=== PATIENT | female | born 1995 | race American Indian/Alaskan Native ===

== ENCOUNTER 2022-02-05 11:55 | Emergency (ER) | payer MEDICAID ==
--- NOTE | 2022-02-05 15:05 | Emergency Department Report ---
ED ENT HPI - General Chief complaint: Dental/Oral Stated complaint: TOOTH INFECTION/COVID/ Time Seen by Provider: 02/05/22 13:14 Source: patient Mode of arrival: Ambulatory Limitations: No Limitations - History of Present Illness Initial comments: 26 yo black female presents to ed for evaluation of few day history of toothache. She denies fever. MD complaint: tooth pain -: Gradual, days(s) (2) Location: tooth # (31) Severity: moderate Severity scale (0 -10): 7 Quality: aching Consistency: constant Worsens with: eating Associated Symptoms: toothache. denies: fever - Related Data Previous Rx's Medication Instructions Recorded Last Taken Type Amoxicillin [Amoxicillin TAB] 875 mg PO BID 7 Days #14 tab 02/05/22 Unknown Rx Ketorolac [Toradol] 10 mg PO Q6H PRN #12 tab 02/05/22 Unknown Rx ED Dental HPI - General Chief complaint: Dental/Oral Stated complaint: TOOTH INFECTION/COVID/ Time Seen by Provider: 02/05/22 13:14 Source: patient Mode of arrival: Ambulatory Limitations: No Limitations - Related Data Previous Rx's Medication Instructions Recorded Last Taken Type Amoxicillin [Amoxicillin TAB] 875 mg PO BID 7 Days #14 tab 02/05/22 Unknown Rx Ketorolac [Toradol] 10 mg PO Q6H PRN #12 tab 02/05/22 Unknown Rx ED Review of Systems ROS: Stated complaint: TOOTH INFECTION/COVID/ Other details as noted in HPI Comment: All other systems reviewed and negative Constitutional: denies: fever ENT: dental pain. denies: ear pain, throat pain, congestion Respiratory: denies: shortness of breath Cardiovascular: denies: chest pain, palpitations Gastrointestinal: denies: abdominal pain, nausea, vomiting Musculoskeletal: denies: back pain Neurological: denies: headache, weakness ED Past Medical Hx - Past Medical History Previous Medical History?: No - Surgical History Past Surgical History?: No - Medications Home Medications: Home Medications Medication Instructions Recorded Confirmed Last Taken Type Amoxicillin [Amoxicillin TAB] 875 mg PO BID 7 Days #14 tab 02/05/22 Unknown Rx Ketorolac [Toradol] 10 mg PO Q6H PRN #12 tab 02/05/22 Unknown Rx ED Physical Exam - General Limitations: No Limitations General appearance: alert, in no apparent distress - Head Head exam: Present: atraumatic - Eye Eye exam: Present: normal appearance - Expanded ENT Exam Expanded Teeth exam: Present: dental tenderness # (31), other (erythema, edema, and tenderness noted to gums around tooth #31. no abscess noted. ). Absent: gingival enlargement - Neck Neck exam: Absent: lymphadenopathy - Respiratory Respiratory exam: Absent: respiratory distress - Cardiovascular Cardiovascular Exam: Present: regular rate - GI/Abdominal GI/Abdominal exam: Absent: distended - Extremities Exam Extremities exam: Present: normal inspection - Neurological Exam Neurological exam: Present: alert, oriented X3 - Psychiatric Psychiatric exam: Present: normal affect, normal mood - Skin Skin exam: Present: warm, intact, normal color ED Course Vital Signs 02/05/22 02/05/22 12:35 15:14 Temperature 98.5 F Pulse Rate 85 72 Respiratory 18 16 Rate Blood Pressure 100/67 128/90 [Left] O2 Sat by Pulse 99 98 Oximetry Critical care attestation.: If time is entered above; I have spent that time in minutes in the direct care of this critically ill patient, excluding procedure time. ED Disposition Clinical Impression: Pain due to dental caries Disposition: 01 HOME / SELF CARE / HOMELESS Is pt being admited?: No Does the pt Need Aspirin: No Condition: Stable Instructions: Preventive Dental Care, Adult Additional Instructions: Take medications as prescribed. Follow-up with dentist for further evaluation and management. Return to the emergency department as needed. Prescriptions: Amoxicillin [Amoxicillin TAB] 875 mg PO BID 7 Days #14 tab Ketorolac [Toradol] 10 mg PO Q6H PRN #12 tab PRN Reason: Pain Referrals: [facility] [Outside] - 3-5 Days [facility] [Outside] - 3-5 Days Time of Disposition: 15:05
[2022-02-05 15:15] VITALS: BP 128/90
== END 2022-02-05 15:25 | disposition home or self-care (01) ==
LOC: ED 11:55
DX: K02.9 Dental caries, unspecified (principal)
CPT/HCPCS: 99282